=== PATIENT | female | born 1990 | race Caucasian/White ===

== ENCOUNTER 2018-09-24 10:38 | Emergency (ER) | payer BC, OTHER ==
[~2018-09-24] VITALS: Ht 167.6 cm; Wt 87.6 kg
[2018-09-24 10:52] VITALS: Ht 167.6 cm; Wt 87.6 kg
[2018-09-24] MEDS ORDERED: SOD CHLORIDE 0.9% 250 ML IV ONE (12:00)
[2018-09-24] MEDS ORDERED: LIDOCAINE/MYLANTA 40 ML BTL PO ONE (12:00)
[2018-09-24] MEDS ORDERED: KETOROLAC 30 MG INJ IV STA (13:02)
[2018-09-24] MEDS ORDERED: SOD CHLORIDE 0.9% 100 ML ONE (13:09)
[2018-09-24] MEDS ORDERED: IOHEXOL 300MG/ML 150 ML BTL ONE (13:09)
[2018-09-24] MEDS ORDERED: METOCLOPRAMIDE 10 MG TAB PO ONE (13:30)
[2018-09-24] MEDS ORDERED: AZIT250T PO (14:23)
[2018-09-24] MEDS ORDERED: ONDA4TAB8 PO (14:23)
[2018-09-24] MEDS ORDERED: AZITHROMYCIN 500 MG TAB PO ONE (14:30)
--- NOTE | 2018-09-24 14:30 | ERD ---
ER Documentation Chief Complaint Chief Complaint epigastric pain & vomitting since 0900 HPI 28-year-old female presenting with epigastric pain right lower quadrant pain vomiting since 9 AM this morning. Patient states she has had some cold sweats the last thing she ate was at a barbecue last night which was chicken. Patient does not know if anyone else is sick who had the same food as her. Patient states the pain is 6 out of 10 and is nonradiating mid epigastric pain. Patient denies any allergies to medication. Patient is currently breast-feeding. Patient denies allergies to medication ROS All systems reviewed and are negative except as per history of present illness. Medications Home Meds Active Scripts Ondansetron Hcl* (Zofran*) 4 Mg Tablet, 4 MG PO Q6H for NAUSEA AND/OR VOMITING, #30 TAB Prov:NICK MAJANO PA-C 09/24/18 Azithromycin* (Zithromax*) 250 Mg Tablet, 250 MG PO DAILY for 4 Days, TAB Prov:NICK MAJANO PA-C 09/24/18 Allergies Allergies: Coded Allergies: No Known Allergy (Unverified , 09/24/18) PMhx/Soc Medical and Surgical Hx: pt denies Medical Hx, pt denies Surgical Hx Hx Alcohol Use: No Hx Substance Use: No Hx Tobacco Use: No FmHx Family History: No diabetes, No coronary disease, No other Physical Exam Vitals Vital Signs Date Temp Pulse Resp B/P (MAP) Pulse Ox O2 O2 Flow FiO2 Time Delivery Rate 09/24/18 98.1 71 16 101/61 98 Room Air 14:38 (74) 09/24/18 98.0 90 18 125/76 96 10:52 (92) Physical Exam GENERAL: The patient is well-appearing, well-nourished, in no acute distress HEENT: Atraumatic. Conjunctivae are pink. Pupils equal, round, and reactive to light. There is no scleral icterus. Tympanic membranes clear bilaterally. Oropharynx clear. No nystagmus or photophobia. NECK: C-spine is soft and supple. There is no meningismus. There is no cervical lymphadenopathy. CHEST: Clear to auscultation bilaterally. There are no rales, wheezes or rhonchi. HEART: Regular rate and rhythm. No murmurs, clicks, rubs or gallops. ABDOMEN: Patient noted for right lower quadrant pain, McBurney's point re- provoked pain. Right upper quadrant palpation unremarkable. Left lower quadrant pain mild tenderness. Left upper quadrant unremarkable. Patient has increased bowel sounds on auscultation. BACK: No midline or flank tenderness. Result Diagram: 09/24/18 1204 09/24/18 1204 Results 24 hrs Laboratory Tests Test 09/24/18 11:48 09/24/18 12:04 POC Beta HCG, Qualitative NEGATIVE White Blood Count 17.7 10^3/ul Red Blood Count 4.80 10^6/ul Hemoglobin 14.7 g/dl Hematocrit 42.8 % Mean Corpuscular Volume 89.2 fl Mean Corpuscular Hemoglobin 30.6 pg Mean Corpuscular Hemoglobin Concent 34.3 g/dl Red Cell Distribution Width 11.9 % Platelet Count 252 10^3/UL Mean Platelet Volume 11.3 fl Immature Granulocytes % 0.400 % Neutrophils % 78.2 % Lymphocytes % 15.9 % Monocytes % 4.7 % Eosinophils % 0.5 % Basophils % 0.3 % Nucleated Red Blood Cells % 0.0 /100WBC Immature Granulocytes # 0.070 10^3/ul Neutrophils # 13.8 10^3/ul Lymphocytes # 2.8 10^3/ul Monocytes # 0.8 10^3/ul Eosinophils # 0.1 10^3/ul Basophils # 0.1 10^3/ul Nucleated Red Blood Cells # 0.0 10^3/ul Urine Color YELLOW Urine Clarity CLEAR Urine pH 5.0 Urine Specific Denhoff 1.030 Urine Ketones NEGATIVE mg/dL Urine Nitrite NEGATIVE mg/dL Urine Bilirubin NEGATIVE mg/dL Urine Urobilinogen NEGATIVE mg/dL Urine Leukocyte Esterase NEGATIVE Dariel/ul Urine Hemoglobin NEGATIVE mg/dL Urine Glucose NEGATIVE mg/dL Urine Total Protein NEGATIVE mg/dl Sodium Level 142 mmol/L Potassium Level 4.7 mmol/L Chloride Level 109 mmol/L Carbon Dioxide Level 22 mmol/L Anion Gap 11 Blood Urea Nitrogen 13 mg/dl Creatinine 0.55 mg/dl Est Glomerular Filtrat Rate mL/min > 60 mL/min Glucose Level 89 mg/dl Calcium Level 9.6 mg/dl Total Bilirubin 0.6 mg/dl Direct Bilirubin 0.00 mg/dl Indirect Bilirubin 0.6 mg/dl Aspartate Amino Transf (AST/SGOT) 18 IU/L Alanine Aminotransferase (ALT/SGPT) 22 IU/L Alkaline Phosphatase 136 IU/L Total Protein 8.3 g/dl Albumin 4.7 g/dl Globulin 3.60 g/dl Albumin/Globulin Ratio 1.30 Lipase 107 U/L Current Medications Medications Dose Sig/Светлана Start Time Status Last (Trade) Ordered Route PRN Stop Time Admin Dose Reason Admin 40 ml ONCE ONCE 09/24/18 DC 09/24/18 Miscellaneous PO 12:00 12:09 Medication 09/24/18 12:01 (Gi Cocktail (2)) Sodium 250 ml @ Q1H ONCE 09/24/18 DC 09/24/18 Chloride 250 mls/hr IV 12:00 12:09 09/24/18 12:59 Ketorolac 30 mg ONCE STAT 09/24/18 DC 09/24/18 Tromethamine IV 13:02 13:16 (Toradol) 09/24/18 13:05 10 mg ONCE ONCE 09/24/18 DC 09/24/18 Metoclopramid PO 13:30 13:16 e HCl 09/24/18 13:31 (Reglan) IV Flush 10 ml STK-MED 09/24/18 DC 09/24/18 (NS 10 ml) ONCE .ROUTE 13:09 13:54 09/24/18 13:10 Sodium 100 ml @ ud STK-MED 09/24/18 DC 09/24/18 Chloride ONCE .ROUTE 13:09 13:54 09/24/18 13:10 Iohexol 150 ml STK-MED 09/24/18 DC 09/24/18 (Omnipaque ONCE .ROUTE 13:09 13:55 300mg/ ml) 09/24/18 13:10 500 mg ONCE ONCE 09/24/18 DC 09/24/18 Azithromycin PO 14:30 14:36 (Zithromax) 09/24/18 14:31 Procedures/MDM ED course: IV normal saline GI cocktail Toradol Reglan Azithromycin Ultrasound CT The patient was stable throughout the ED course. The patient and/or family informed of laboratory and diagnostic imaging results throughout the ED course. Diagnostic imaging: Read by radiologist PROCEDURE: PROCEDURE: Ultrasound right lower quadrant CLINICAL INDICATION: Right lower quadrant pain TECHNIQUE: Sonographic evaluation of the right lower quadrant was performed. Schwarz scale and color imaging was utilized. Compression technique was utilized as well. Images were reviewed on a high-resolution PACS workstation. COMPARISON: None available FINDINGS: No lymphadenopathy is seen. No free fluid could be identified. Specifically, no blind ending tubular structure is seen. The appendix is not definitely visualized. IMPRESSION: Appendix not definitely visualized. Therefore, the diagnosis of appendicitis cannot be confidently included nor excluded. CT Abdomen and Pelvis with contrast CLINICAL INDICATION: Abdominal pain TECHNIQUE: Transaxial computed tomographic images of the abdomen and pelvis were obtained following the uneventful administration of 100 mL Omnipaque-300 intravenous contrast according to standard protocol. Coronal and sagittal reformatted images were provided. DICOM images are available. Radiation dose: CTDIvol (mGy) = 18.21; total DLP (mGy.cm) = 1133.7. One or more of the following dose reduction techniques were used: - Automated exposure control. - Adjustment of the mA and/or kV according to patient size. - Use of iterative reconstruction technique. COMPARISON: None. FINDINGS: The visualized lung bases are clear. There is no pleural effusion. The liver, gallbladder, spleen, pancreas, adrenal glands, and kidneys are normal. There is no evidence of intestinal obstruction. There is mild thick-walled appearance of multiple loops of small bowel in the mid to lower abdomen. The appendix is normal. There is no free intraperitoneal air or fluid. There is no suspicious mesenteric or retroperitoneal lymphadenopathy. The abdominal aorta is of normal diameter. Urinary bladder is normal. The uterus is retroverted and the endometrium appears prominent. A 2.5 cm left ovarian cyst is present. The osseous structures of the abdomen and pelvis are intact. IMPRESSION: 1. Mild thick-walled appearance of multiple loops of small bowel in the mid to lower abdomen. No bowel obstruction. This is a nonspecific finding and enteritis cannot be ruled out. Clinical correlation is advised. Procedures: None Medications given in ER: CBC CMP UA US CT Normal saline GI cocktail Toradol Reglan Azithromycin Patient tolerated medication well with no adverse reactions. Patient reported improvement in pain. Medical decision makin-year-old female midepigastric pain x1 day. Patient states she started vomiting at 9 AM this morning and had cold sweats associated. Patient rates the pain 6 out of 10 and states it does not radiate anywhere else. Patient denies diarrhea constipation, blood in urine, blood in stool, patient denies any previous surgeries and denies any past medical history. Patient has not taken any medications for anything. Patient denies any allergies to medication. Patient's physical exam was remarkable for right lower quadrant pain on palpation patient has pain in midepigastric region that is nonradiating. Patient had abdominal ultrasound which was unremarkable and could not rule out appendicitis. Patient was sent for CT of abdomen pelvis with contrast, the report indicated could not rule out enteritis.Low suspicion for acute coronary syndrome, AAA, mesenteric ischemia, lower lobe pneumonia, DKA, bowel perforation, cholecystitis, choledocholithiasis, ascending cholangitis, hepatic abscess, pancreatitis, PUD, gastritis, GERD, splenic rupture, diverticulitis, UTI, pyelonephritis, nephrolithiasis, appendicitis, constipation, , ectopic , PID, ovarian torsion or tubo-ovarian abscess. Patient CBC was remarkable for elevated white blood cell count. Patient was given IV normal saline, GI cocktail, Toradol, Reglan. Patient reports improvement in symptoms. At this time I think is best to treat the patient for enteritis, the patient was given the first dose of azithromycin in the ER and was given a prescription to be treated outpatient. Patient was advised to not start the antibiotic until tomorrow, because she is receiving her first dose in the ER. Patient is also being sent home with prescription for Zofran for nausea symptoms. The antibiotic azithromycin was chosen because the patient is breast-feeding. Patient was advised that antibiotics can present in breastmilk, but this an tibiotic is shown safe in breast-feeding. I advised her that it can cause symptoms such as diarrhea and the breast-feeding infant and recommended she uses formula until she finishes the antibiotic. Also advised the patient that it is safest to not breast-feed the first 24 hours after receiving IV contrast. On reevaluation of the patient's symptoms. the patient states and symptoms have improved since she is been here in the medication has helped. I reviewed the laboratory findings and radiology report with the patient. The patient is in agreement to the treatment plan and was advised if symptoms worsens to return to ER immediately. The patient had no further questions upon discharge Prescription for home: Azithromycin Zofran Discharge: At this time, patient is stable for discharge and outpatient management. I have instructed the patient to follow-up with his\her primary care physician in 1 to 2 days. I have discussed with the patient the possibility of needing to see a specialist for further work-up and imaging studies if symptoms persist. I have instructed the patient to promptly return to the ER for any new or worsening symptoms including increased pain, fever, nausea, vomiting, weakness or LOC. The patient and\or family expressed understanding of and agreement with this plan. All questions were answered. Home care instructions were provided. Disclaimer: Inadvertent spelling and grammatical errors are likely due to EHR\dictation software use and do not reflect on the overall quality of patient care. Also, please note that the electronic time recorded on the note does not necessarily reflect the actual time of the patient encounter. Departure Diagnosis: Primary Impression: Enteritis Additional Impression: Dyspepsia Condition: Stable NICK MAJANO PA-C Sep 24, 2018 14:30
[2018-09-24 14:38] VITALS: BP 101/61; PULSE 71; RESP 16
== END 2018-09-24 14:44 | disposition home or self-care (01) ==
LOC: FTE 10:38
DX: K52.9 Noninfective gastroenteritis and colitis, unspecified (principal)
CPT/HCPCS: 74177; 76705; 80053; 81003; 81025; 83690; 85025; 96361; 96374; 99285; J1885; J7040; Q9967